=== PATIENT | male | born 1995 | race Caucasian/White ===

== ENCOUNTER → 2017-05-25 | Outpatient (CLI) | payer SELFPAY ==
--- NOTE | 2017-05-25 14:18 | DI ---
XR WRIST COMPLETE MIN 3VW,05/25/2017 12:16 PM: Clinical History: Right wrist pain Previous Exam: None at this facility. Findings: 4 views of the right wrist are obtained, and demonstrate anatomic alignment without fractures. Navicu lar views demonstrate no fracture. Impression: No fracture.
== END ==
LOC: MOB RAD 12:17
PROVIDERS: ATTEND Physician Assistant
DX: M25.531 Pain in right wrist (principal); Z72.0 Tobacco use
CPT/HCPCS: 73110